=== PATIENT | male | born 1960 | race Caucasian/White ===

== ENCOUNTER 2019-06-25 10:04 | Emergency (ER) | payer BC ==
--- NOTE | 2019-06-25 10:46 | ER Document Report ---
ED Medical Screen (RME) - General Chief Complaint: Blood Pressure Problem Stated Complaint: BLOOD PRESSURE PROBLEMS Time Seen by Provider: 06/25/19 10:32 Information source: Patient Notes: Patient presents with a history of neurogenic orthostatic hypotension and diabetes. Patient states that his blood pressure has been elevated recently as high as 232/128. Patient states that he did have some headache pain in various spots on the scalp and had some double vision that has since improved at this time. Patient does report some nausea. Patient states he has to stand up for his blood pressure to go down. Patient states that he did have a leftover prescription of losartan 50 mg. Patient states that when he had his symptoms during the night he took 50 mg at midnight and then 50 mg at 2:00 this morning. Patient states that he did have his Florinef dose increased recently. I have greeted and performed a rapid initial assessment of this patient. A comprehensive ED assessment and evaluation of the patient, analysis of test results and completion of the medical decision making process will be conducted by additional ED providers. - Related Data Allergies/Adverse Reactions: No Known Allergies Allergy (Unverified 06/25/19 10:31) Past Medical History - Past Medical History Cardiac Medical History: Reports: Hx Hypertension - and hypo Physical Exam - Vital signs Vitals: Resp Pulse Ox 15 97 06/25/19 10:17 06/25/19 10:17 - Neurological Neuro grossly intact: Yes Cognition: Normal [place] Coma Scale Eye Opening: Spontaneous [place] Coma Scale Verbal: Oriented [place] Coma Scale Motor: Obeys Commands [place] Coma Scale Total: 15 Speech: Normal Course - Vital Signs Vital signs: Temp Pulse Resp BP Pulse Ox 97.6 F 67 15 197/103 H 97 06/25/19 10:30 06/25/19 10:30 06/25/19 10:17 06/25/19 10:30 06/25/19 10:17
--- NOTE | 2019-06-25 11:35 | RADIOLOGY REPORT (SQ) ---
EXAM DESCRIPTION: CHEST 2 VIEWS COMPLETED DATE/TIME: 06/25/2019 11:25 am REASON FOR STUDY: HTN COMPARISON: None. EXAM PARAMETERS: NUMBER OF VIEWS: two views TECHNIQUE: Digital Frontal and Lateral radiographic views of the chest acquired. RADIATION DOSE: NA LIMITATIONS: none FINDINGS: LUNGS AND PLEURA: No opacities, masses or pneumothorax. No pleural effusion. MEDIASTINUM AND HILAR STRUCTURES: No masses or contour abnormalities. HEART AND VASCULAR STRUCTURES: Heart normal size. No evidence for failure. BONES: No acute findings. HARDWARE: None in the chest. OTHER: No other significant finding. IMPRESSION: NO ACUTE RADIOGRAPHIC FINDING IN THE CHEST. TECHNICAL DOCUMENTATION: JOB ID: [id number]- All Rights Reserved Reading location - IP/workstation name: [email or web address]
--- NOTE | 2019-06-25 11:50 | RADIOLOGY REPORT (SQ) ---
EXAM DESCRIPTION: CT HEAD WITHOUT COMPLETED DATE/TIME: 06/25/2019 11:41 am REASON FOR STUDY: HTN, TOWNSEND, vision changes COMPARISON: None. TECHNIQUE: Axial images acquired through the brain without intravenous contrast. Images reviewed wi th bone, brain and subdural windows. Additional sagittal and coronal reconstructions were generated. Images stored on PACS. All CT scanners at this facility use dose modulation, iterative reconstruction, and/or weight based d osing when appropriate to reduce radiation dose to as low as reasonably achievable (ALARA). [facility]: Dose Right [facility]: CareDose [facility]: Dose Right [facility]: Teradose 4D [facility]: Smart [employer] RADIATION DOSE: CT Rad equipment meets quality standard of care and radiation dose reduction techniq ues were employed. CTDIvol: 53.2 mGy. DLP: 964 mGy-cm. mGy. LIMITATIONS: None. FINDINGS: VENTRICLES: Normal size and contour. CEREBRUM: No masses. No hemorrhage. No midline shift. No evidence for acute infarction. Normal gra y/white matter differentiation. No areas of low density in the white matter. CEREBELLUM: No masses. No hemorrhage. No alteration of density. No evidence for acute infarction. EXTRAAXIAL SPACES: No fluid collections. No masses. ORBITS AND GLOBE: No intra- or extraconal masses. Normal contour of globe without masses. CALVARIUM: No fracture. PARANASAL SINUSES: No fluid or mucosal thickening. SOFT TISSUES: No mass or hematoma. OTHER: No other significant finding. IMPRESSION: NORMAL BRAIN CT WITHOUT CONTRAST. EVIDENCE OF ACUTE STROKE: NO. COMMENT: Quality ID # [id number]: Final reports with documentation of one or more dose reduction techniques (e.g., Automated exposure control, adjustment of the mA and/or kV according to patient size, use of iterative reconstruction technique) TECHNICAL DOCUMENTATION: JOB ID: [id number] [employer]- All Rights Reserved Reading location - IP/workstation name: [email or web address]
[2019-06-25 12:19] LABS: APPEARANCE,URINE CLEAR; BILIRUBIN,URINE NEGATIVE (NEGATIVE); COLOR,URINE YELLOW; GLUCOSE, URINE 150 mg/dL (NEGATIVE); KETONES,URINE NEGATIVE (NEGATIVE); PROTEIN,URINE NEGATIVE (NEGATIVE); URINE SPECIFIC GRAVITY 1.014; UROBILINOGEN,URINE NEGATIVE mg/dL (<2.0)
--- NOTE | 2019-06-25 12:21 | ER Document Report ---
ED General - General Chief Complaint: Blood Pressure Problem Stated Complaint: BLOOD PRESSURE PROBLEMS Time Seen by Provider: 06/25/19 10:32 Mode of Arrival: Ambulatory Information source: Patient Notes: 59-year-old male presents to the emergency department with a history of orthostatic hypotension, he is on Florinef and the dose was recently increased. Noticing increasing blood pressure over the past few days and elevated last night. He denies headache or acute neurologic symptoms however does complain of a pressure sensation in his head when the blood pressure is extreme. He present s to the emergency department for further evaluation. - Related Data Allergies/Adverse Reactions: No Known Allergies Allergy (Unverified 06/25/19 10:31) Past Medical History - General Information source: Patient - Social History Smoking Status: Unknown if Ever Smoked Family History: Hypertension Patient has suicidal ideation: No Patient has homicidal ideation: No - Past Medical History Cardiac Medical History: Reports: Hx Hypertension - and hypo Review of Systems - Review of Systems Notes: Constitutional: Negative for fever. HENT: Negative for sore throat. Eyes: Negative for visual changes. Cardiovascular: Negative for chest pain. Respiratory: Negative for shortness of breath. Gastrointestinal: Negative for abdominal pain, vomiting or diarrhea. Genitourinary: Negative for dysuria. Musculoskeletal: Negative for back pain. Skin: Negative for rash. Neurological: Negative for headaches, weakness or numbness. 10 point ROS negative except as marked above and in HPI. Physical Exam - Vital signs Vitals: Resp Pulse Ox 15 97 06/25/19 10:17 06/25/19 10:17 - Notes Notes: Reviewed vital signs and nursing note as charted by RN. CONSTITUTIONAL: Well-appearing, well-nourished; attentive, alert and interactive with good eye contact; acting appropriately for age HEAD: Normocephalic; atraumatic; No swelling EYES: PERRL; Conjunctivae clear, no drainage; EOMI ENT: External ears without lesions; External auditory canal is patent; TMs without erythema, landmarks clear and well visualized; no rhinorrhea; Pharynx without erythema or lesions, no tonsillar hypertrophy, airway patent, mucous membranes pink and moist NECK: Supple, no cervical lymphadenopathy, no masses CARD: Regular rate and rhythm; no murmurs, no rubs, no gallops, RESP: Respiratory rate and effort are normal. There is normal chest excursion. No respiratory distress, no retractions, no stridor, no nasal flaring, no accessory muscle use. The lungs are clear to auscultation bilaterally, no wheezing, no rales, no rhonchi. ABD/GI: Normal bowel sounds; non-distended; soft, non-tender, no rebound, no guarding, no palpable organomegaly EXT: Normal ROM in all joints; non-tender to palpation; no effusions, no edema SKIN: Normal color for age and race; warm; dry; good turgor; no acute lesions noted NEURO: No facial asymmetry; Moves all extremities equally; Motor and sensory function intact Course - Re-evaluation Re-evalutation: 06/25/19 14:14 Differential diagnosis Electrolyte imbalance, adverse reactions to Florinef, intracerebral hemorrhage, ischemic/vascular Patient's blood pressure has improved and he is feeling fine. He is requesting something to take if his pressure goes back up. I have suggested that he try clonidine 0.1 mg tablets. We will discharge him with 5 tablets and 1 to be taken if his blood pressure approaches to 180/190 systolic range. He is able to monitor the blood pressure at home and his attest that his blood pressure has been as low as 60 systolic and he has been functional. He gone on the Florinef by his neurologist and will be following up in that office tomorrow. - Vital Signs Vital signs: Temp Pulse Resp BP Pulse Ox 97.9 F 67 9 L 159/77 H 99 06/25/19 14:48 06/25/19 10:30 06/25/19 14:47 06/25/19 14:48 06/25/19 14:47 - Laboratory Result Diagrams: 06/25/19 12:18 06/25/19 12:18 Laboratory results interpreted by me: 06/25/19 06/25/19 11:17 12:18 Glucose 165 H Total Protein 8.3 H Urine Glucose (UA) 150 H - Diagnostic Test Radiology reviewed: Image reviewed, Reports reviewed - Chest x-ray: No acute infiltrate or effusion noted CT of the head noncontrast study: No acute findings, no CVA, no hemorrhage. - EKG Interpretation by Pa EKG shows normal: Sinus rhythm - Rate of 64, [place], Intervals, QRS Complexes, ST- T Waves Discharge - Discharge Clinical Impression: Episode of hypertension, Orthostatic hypotension dysautonomic syndrome Condition: Good Disposition: HOME, SELF-CARE Instructions: High Blood Pressure ([facility]), Orthostatic Hypotension ([facility]) Additional Instructions: Please follow-up with your Neurologist tomorrow. Prescriptions: Clonidine HCl [Catapres] 0.1 mg PO Q12 #5 tablet Forms: Elevated Blood Pressure
[2019-06-25 12:26] LABS: ABSOLUTE BASOPHILS # (AUTO) 0.1 10^3/uL (0.0-0.2); ABSOLUTE EOSINOPHILS # (AUTO) 0.2 10^3/uL (0.0-0.6); ABSOLUTE LYMPHOCYTES (AUTO) 1.8 10^3/uL (0.5-4.7); ABSOLUTE MONOCYTES (AUTO) 0.5 10^3/uL (0.1-1.4); ABSOLUTE NEUT (AUTO) 5.2 10^3/uL (1.7-8.2); BASOPHILS % (AUTO) 0.9 % (0-2); EOSINOPHILS % (AUTO) 2.5 % (0-6); HEMATOCRIT 47.2 % (37.9-51.0); MEAN CORPUSCULAR HEMOGLOBIN 29.2 pg (27.0-33.4); MEAN CORPUSCULAR HGB CONC 33.9 g/dL (32.0-36.0); MEAN CORPUSCULAR VOLUME 86 fl (80-97); MONOCYTES % (AUTO) 6.9 % (3-13); PLATELET COUNT 194 10^3/uL (150-450); RED BLOOD COUNT 5.48 10^6/uL (4.35-5.55); SEGMENTED NEUTROPHILS % (AUTO) 66.7 % (42-78); TOTAL CELLS COUNTED % (AUTO) 100 %; WHITE BLOOD COUNT 7.8 10^3/uL (4.0-10.5)
[2019-06-25 12:47] LABS: ALBUMIN 4.8 g/dL (3.5-5.0); ALKALINE PHOSPHATASE 95 U/L (38-126); ANION GAP 11 (5-19); ASPARTATE AMINO TRANSFERASE 34 U/L (17-59); BILIRUBIN,DIRECT 0.2 mg/dL (0.0-0.4); BILIRUBIN,TOTAL 0.6 mg/dL (0.2-1.3); BLOOD UREA NITROGEN 18 mg/dL (7-20); CALCIUM 9.3 mg/dL (8.4-10.2); CARBON DIOXIDE 26 mmol/L (22-30); CHLORIDE 102 mmol/L (98-107); GLUCOSE 165 mg/dL (75-110); POTASSIUM 4.9 mmol/L (3.6-5.0); TOTAL PROTEIN 8.3 g/dL (6.3-8.2)
[2019-06-25 15:19] VITALS: BP 159/77
--- NOTE | 2019-06-25 23:23 | EKG REPORT ---
SEVERITY:- NORMAL ECG - SINUS RHYTHM : Confirmed by: Edin Vinson 25-Jun-2019 23:22:43
== END 2019-06-25 14:45 | disposition home or self-care (01) ==
LOC: ER 10:04
DX: I10 Essential (primary) hypertension (principal); I95.1 Orthostatic hypotension; G90.1 Familial dysautonomia [Riley-Day]; Z79.899 Other long term (current) drug therapy
CPT/HCPCS: 36415; 70450; 71046; 80053; 81001; 84484; 85025; 93005; 93010; 99284

== ENCOUNTER 2019-07-01 06:10 | Emergency (ER) | payer BC ==
[2019-07-01 08:01] VITALS: BP 186/98
[2019-07-01 08:04] LABS: ABSOLUTE BASOPHILS # (AUTO) 0.1 10^3/uL (0.0-0.2); ABSOLUTE EOSINOPHILS # (AUTO) 0.1 10^3/uL (0.0-0.6); ABSOLUTE LYMPHOCYTES (AUTO) 1.7 10^3/uL (0.5-4.7); ABSOLUTE MONOCYTES (AUTO) 0.6 10^3/uL (0.1-1.4); BASOPHILS % (AUTO) 0.9 % (0-2); EOSINOPHILS % (AUTO) 1.6 % (0-6); HEMATOCRIT 42.8 % (37.9-51.0); HEMOGLOBIN 14.7 g/dL (13.5-17.0); LYMPHOCYTES % (AUTO) 22.5 % (13-45); MEAN CORPUSCULAR HEMOGLOBIN 29.3 pg (27.0-33.4); MEAN CORPUSCULAR HGB CONC 34.3 g/dL (32.0-36.0); MEAN CORPUSCULAR VOLUME 86 fl (80-97); MONOCYTES % (AUTO) 8.4 % (3-13); PLATELET COUNT 184 10^3/uL (150-450); RED BLOOD COUNT 5.01 10^6/uL (4.35-5.55); RED CELL DISTRIBUTION WIDTH 13.7 % (11.5-14.0); SEGMENTED NEUTROPHILS % (AUTO) 66.6 % (42-78); TOTAL CELLS COUNTED % (AUTO) 100 %; WHITE BLOOD COUNT 7.5 10^3/uL (4.0-10.5)
[2019-07-01 08:08] LABS: APPEARANCE,URINE CLEAR; BILIRUBIN,URINE NEGATIVE (NEGATIVE); COLOR,URINE STRAW; GLUCOSE, URINE 50 mg/dL (NEGATIVE); KETONES,URINE NEGATIVE (NEGATIVE); LEUKOCYTE ESTERASE,URINE NEGATIVE (NEGATIVE); NITRITE,URINE NEGATIVE (NEGATIVE); PROTEIN,URINE NEGATIVE (NEGATIVE); URINE SPECIFIC GRAVITY 1.004; UROBILINOGEN,URINE NEGATIVE mg/dL (<2.0)
[2019-07-01 08:09] LABS: ALBUMIN 4.6 g/dL (3.5-5.0); ALKALINE PHOSPHATASE 103 U/L (38-126); ANION GAP 11 (5-19); ASPARTATE AMINO TRANSFERASE 28 U/L (17-59); BILIRUBIN,DIRECT 0.1 mg/dL (0.0-0.4); BILIRUBIN,TOTAL 0.5 mg/dL (0.2-1.3); BLOOD UREA NITROGEN 17 mg/dL (7-20); CALCIUM 9.3 mg/dL (8.4-10.2); CARBON DIOXIDE 30 mmol/L (22-30); CHLORIDE 100 mmol/L (98-107); GLUCOSE 166 mg/dL (75-110); POTASSIUM 4.1 mmol/L (3.6-5.0); TOTAL PROTEIN 7.6 g/dL (6.3-8.2)
--- NOTE | 2019-07-01 08:17 | ER Document Report ---
Entered by YENI SHEARER SCRIBE 07/01/19 0710 Acting as scribe for:CORONA LUBIN IV, MD ED Blood Pressure Problem - General Chief Complaint: Blood Pressure Problem Stated Complaint: BLOOD PRESSURE PROBLEM,NAUSEA Mode of Arrival: Ambulatory Information source: Patient Notes: Patient is a 59 year old male with with a complicated history of orthostatic hypotension dysautonomic disorder that presents to the emergency department today with complaints of elevated blood pressures. Patient has had multiple recent adjustments to his blood pressure medication which seem to be causing his symptoms. Patient states that his Florinef was increased from 2 tablets a day to 3 tablets a day and that is when his blood pressures started to get very high. Patient states when his pressures become elevated he gets a headache with associated nausea. Patient states he called his neurologist on 06/28 to tell him that he was seen here on 06/26 for elevated pressures, he was told to go back down to the 2 tablets of Florinef, but that it would take at least a week to lower in his system. Patient's neurologist also added hydralazine. Patient mentions that he has not been getting any sleep over the last week because when he lies down his pressure goes up giving him a headache which keeps him from sleeping. Pertinent PMHx: Orthostatic hypotension dysautonomic disorder (medicated with Florinef and hydralazine) PCP: Followed by neuro at [facility] Dr. Diane Alvarez TRAVEL OUTSIDE OF THE [place] IN LAST 30 DAYS: No - Related Data Allergies/Adverse Reactions: No Known Allergies Allergy (Unverified 06/25/19 10:31) Home Medications: fludrocort 0.1 mg 2 tab qdprn. hydrazaline 2 tabs q8hprn Past Medical History - General Information source: Patient - Social History Smoking Status: Former Smoker Cigarette use (# per day): No Frequency of alcohol use: Occasional Drug Abuse: None Lives with: Family Family History: Hypertension Patient has suicidal ideation: No Patient has homicidal ideation: No - Past Medical History Cardiac Medical History: Reports: Hx Hypertension - Orthostatic hypotension dysautonomic disorder Past Surgical History: Reports: Hx Orthopedic Surgery - right knee repair, Hx Tonsillectomy Review of Systems - Review of Systems Constitutional: No symptoms reported EENT: No symptoms reported Cardiovascular: See HPI, Other - hypertension Respiratory: No symptoms reported Gastrointestinal: See HPI, Nausea Genitourinary: No symptoms reported Male Genitourinary: No symptoms reported Musculoskeletal: No symptoms reported Skin: No symptoms reported Hematologic/Lymphatic: No symptoms reported Neurological/Psychological: See HPI, Headaches -: Yes All other systems reviewed and negative Physical Exam - Vital signs Vitals: Temp Pulse Resp BP Pulse Ox 97.1 F 60 16 165/87 H 97 07/01/19 06:38 07/01/19 06:38 07/01/19 06:38 07/01/19 06:38 07/01/19 06:38 - Notes Notes: Physical Exam: General: Alert, appears well. HEENT: Normocephalic. Atraumatic. PERRL. Extraocular movements intact. Oropharynx clear. Neck: Supple. Non-tender. Respiratory: No respiratory distress. Clear and equal breath sounds bilaterally. Cardiovascular: Regular rate and rhythm. Abdominal: Normal Inspection. Non-tender. No distension. Normal Bowel Sounds. Back: No gross abnormalities. Extremities: Moves all four extremities. Upper extremities: Normal inspection. Normal ROM. Lower extremities: Normal inspection. No edema. Normal ROM. Neurological: Normal cognition. AAOx4. Normal speech. Psychological: Appears anxious. Skin: Warm. Dry. Slight palor. Course - Re-evaluation Re-evalutation: 07/01/19 07:30 Call placed to [facility] to speak to Dr. Diane Alvarez, states Dr. Montalvo is production cell leader for neuro and he will return the call. 07/01/19 08:07 Dr Alvarez actually returned call as she was on consult today. Agrees that no head CT is necessary. Agrees that his hydralazine can be increased to 30mg TID a day if needed, when pressures are 190/110 or higher. - Vital Signs Vital signs: Temp Pulse Resp BP Pulse Ox 97.1 F 62 27 H 170/82 H 96 07/01/19 06:38 07/01/19 07:10 07/01/19 07:24 07/01/19 07:24 07/01/19 07:24 - Laboratory Result Diagrams: 07/01/19 06:55 07/01/19 06:55 Laboratory results interpreted by me: 07/01/19 07/01/19 06:55 07:39 Glucose 166 H Urine Glucose (UA) 50 H Discharge - Discharge Clinical Impression: Dysautonomia Condition: Good Disposition: HOME, SELF-CARE Additional Instructions: FOLLOW UP WITH DR. ALVAREZ WITHIN 4 DAYS YOU CAN INCREASE HYDRALAZINE TO 3 TABLETS 3 TIMES A DAY FOR BLOOD PRESSURE 190/110 FOR THE NEXT 3-4 DAYS. HOME CARE INSTRUCTIONS & INFORMATION: Thank you for choosing us for your medical needs. We hope you're satisfied with the care you received. After you leave, you must properly care for your problem and, at the same time, observe its progress. Any condition can change. Some illnesses can change rapidly over hours or days. If your condition worsens, return to the Emergency Department or see your physician promptly. ABOUT YOUR X-RAYS AND EKG'S: If you had an EKG or X-rays taken, they have been read by the Emergency Physician. The X-rays and EKG's will also be read by a Radiologist or Braider Operator within 24 hours. If discrepancies are noted, you will be notified by telephone. Please be certain the ED has a correct telephone number & address where you can be reached. Also, realize that some fractures or abnormalities do not show up on initial X-rays. If your symptoms continue, see your physician. ABOUT YOUR LABORATORY TEST: If you had laboratory tests, the results have been reviewed by the Emergency Physician. Some test results (for example cultures) may not be available for several days. You will be contacted if any test result shows you need additional treatment. Please be certain the ED has a correct telephone number and address where you can be reached. ABOUT YOUR MEDICATIONS: You will receive instructions on how to take your medicine on the prescription label you receive. Additional information may be provided by the Pharmacy. If you have questions afterwards, call the ED for clarification or further instructions. Some prescribed medications may cause drowsiness. Do not perform tasks such as driving a car or operating machinery without consulting your Pharmacist. If you feel you need a refill of pain medication, your condition will need re-evaluation. Please do not call for a refill of any medication. ABOUT YOUR SIGNATURE: Signature of this document acknowledges to followin. Understanding that you received emergency treatment and that you may be released before al medical problems are known or treated. Please be certain the ED has a correct phone number & address where you can be reached. 2. Acknowledgement that you will arrange for follow-up care as recommended. 3. Authorization for the Emergency Physician to provide information to your follow-up Physician in order to maximize your care. AT ANY TIME, IF YOUR SYMPTOMS CHANGE SIGNIFICANTLY OR WORSEN OR YOU DEVELOP NEW SYMPTOMS, RETURN TO THE EMERGENCY DEPARTMENT IMMEDIATELY FOR RE-EVALUATION. OUR GOAL IS TO PROVIDE EXCELLENT MEDICAL CARE! WE HOPE THAT WE HAVE MET YOUR EXPECTATIONS DURING YOUR EMERGENCY DEPARTMENT VISIT AND THAT YOU FEEL YOU HAVE RECEIVED EXCELLENT CARE! Return to the Emergency Department without delay if any worse. I personally performed the services described in the documentation, reviewed and edited the documentation which was dictated to the scribe in my presence, and it accurately records my words and actions.
--- NOTE | 2019-07-01 11:48 | EKG REPORT ---
SEVERITY:- NORMAL ECG - SINUS RHYTHM : Confirmed by: Liudmila Terrazas MD 01-Jul-2019 11:47:48
== END 2019-07-01 08:34 | disposition home or self-care (01) ==
LOC: ER 06:10
DX: G90.1 Familial dysautonomia [Riley-Day] (principal); I10 Essential (primary) hypertension; R51 Headache; R11.0 Nausea; Z79.899 Other long term (current) drug therapy; Z87.891 Personal history of nicotine dependence
CPT/HCPCS: 36415; 80053; 81001; 85025; 93005; 93010; 99283

== ENCOUNTER 2019-07-26 16:58 | Emergency (ER) | payer BC ==
--- NOTE | 2019-07-26 19:09 | ER Document Report ---
ED Medical Screen (RME) - General Chief Complaint: Blood Pressure Problem Stated Complaint: BLOOD PRESSURE CONCERNS Time Seen by Provider: 07/26/19 19:03 Primary Care Provider: LENORA MARK DDS [Primary Care Provider] - Follow up as needed Mode of Arrival: Ambulatory Information source: Patient Notes: 59-year-old male presented to ED for elevated blood pressure. He is on blood pressure medicine but takes a home remedy for his stomach that has licorice and it. He has pure autonomic failure and he thinks that he may be having a liquids toxicity which is making his blood pressure not go down with his medication. He states he goes to a neurologist at [facility] for this condition. He states that he thinks a elevated cortisol level will determine if he is having a toxicity from this supplement. Manual blood pressure 148/82 I have greeted and performed a rapid initial assessment of this patient. A comprehensive ED assessment and evaluation of the patient, analysis of test results and completion of medical decision making process will be conducted by an additional ED providers. TRAVEL OUTSIDE OF THE [place] IN LAST 30 DAYS: No - Related Data Allergies/Adverse Reactions: No Known Allergies Allergy (Unverified 06/25/19 10:31) Past Medical History - Past Medical History Cardiac Medical History: Reports: Hx Hypertension - Orthostatic hypotension dysautonomic disorder Past Surgical History: Reports: Hx Orthopedic Surgery - right knee repair, Hx Tonsillectomy Physical Exam - Vital signs Vitals: Temp Pulse Resp BP 97.9 F 61 16 204/99 H 07/26/19 17:23 07/26/19 17:23 07/26/19 17:23 07/26/19 17:23 Course - Vital Signs Vital signs: Temp Pulse Resp BP Pulse Ox 97.9 F 59 L 16 200/88 H 100 07/26/19 17:23 07/26/19 17:25 07/26/19 17:23 07/26/19 17:25 07/26/19 17:25 Doctor's Discharge - Discharge Referrals: LENORA MARK DDS [Primary Care Provider] - Follow up as needed
[2019-07-26 20:09] LABS: APPEARANCE,URINE CLEAR; BILIRUBIN,URINE NEGATIVE (NEGATIVE); COLOR,URINE YELLOW; GLUCOSE, URINE 50 mg/dL (NEGATIVE); KETONES,URINE NEGATIVE (NEGATIVE); PROTEIN,URINE NEGATIVE (NEGATIVE); URINE SPECIFIC GRAVITY 1.013; UROBILINOGEN,URINE NEGATIVE mg/dL (<2.0)
[2019-07-26 20:13] LABS: ABSOLUTE BASOPHILS # (AUTO) 0.1 10^3/uL (0.0-0.2); ABSOLUTE EOSINOPHILS # (AUTO) 0.3 10^3/uL (0.0-0.6); ABSOLUTE LYMPHOCYTES (AUTO) 1.7 10^3/uL (0.5-4.7); ABSOLUTE MONOCYTES (AUTO) 0.6 10^3/uL (0.1-1.4); ABSOLUTE NEUT (AUTO) 4.5 10^3/uL (1.7-8.2); BASOPHILS % (AUTO) 0.9 % (0-2); EOSINOPHILS % (AUTO) 4.2 % (0-6); HEMATOCRIT 42.6 % (37.9-51.0); HEMOGLOBIN 14.5 g/dL (13.5-17.0); MEAN CORPUSCULAR HEMOGLOBIN 29.3 pg (27.0-33.4); MEAN CORPUSCULAR HGB CONC 34.1 g/dL (32.0-36.0); MEAN CORPUSCULAR VOLUME 86 fl (80-97); MONOCYTES % (AUTO) 7.7 % (3-13); PLATELET COUNT 169 10^3/uL (150-450); RED BLOOD COUNT 4.96 10^6/uL (4.35-5.55); RED CELL DISTRIBUTION WIDTH 13.7 % (11.5-14.0); SEGMENTED NEUTROPHILS % (AUTO) 63.2 % (42-78); TOTAL CELLS COUNTED % (AUTO) 100 %; WHITE BLOOD COUNT 7.1 10^3/uL (4.0-10.5)
[2019-07-26 20:36] LABS: ALBUMIN 4.4 g/dL (3.5-5.0); ALKALINE PHOSPHATASE 100 U/L (38-126); ANION GAP 12 (5-19); ASPARTATE AMINO TRANSFERASE 36 U/L (17-59); BILIRUBIN,DIRECT 0.1 mg/dL (0.0-0.4); BILIRUBIN,TOTAL 0.5 mg/dL (0.2-1.3); BLOOD UREA NITROGEN 16 mg/dL (7-20); CALCIUM 9.3 mg/dL (8.4-10.2); CARBON DIOXIDE 27 mmol/L (22-30); CHLORIDE 102 mmol/L (98-107); GLUCOSE 114 mg/dL (75-110); POTASSIUM 4.6 mmol/L (3.6-5.0); TOTAL PROTEIN 7.4 g/dL (6.3-8.2)
--- NOTE | 2019-07-26 20:36 | RADIOLOGY REPORT (SQ) ---
EXAM DESCRIPTION: CLINICAL HISTORY: 59 years Male, chest pressure COMPARISON: 06/25/2019 FINDINGS: Cardiomediastinal silhouette is not enlarged. No suspicious lung pleural bone abnormalities. IMPRESSION: Negative chest x-ray.
--- NOTE | 2019-07-26 20:42 | EKG REPORT ---
SEVERITY:- BORDERLINE ECG - SINUS RHYTHM EARLY TRANSITION, ETIOLOGY UNDETERMINED, MAY BE LEAD PLACEMENT : Confirmed by: Cruzito Lundberg MD 26-Jul-2019 20:41:52
[2019-07-26 20:47] LABS: NT PRO BNP 153 pg/mL (<125); TROPONIN I < 0.012 ng/mL
--- NOTE | 2019-07-26 22:41 | ER Document Report ---
ED Blood Pressure Problem - General Chief Complaint: High Blood Pressure Stated Complaint: BLOOD PRESSURE CONCERNS Time Seen by Provider: 07/26/19 19:03 Primary Care Provider: LENORA MARK DDS [ACTIVE STAFF] - Follow up as needed Mode of Arrival: Ambulatory Notes: Patient is a 59-year-old male who presents to the emergency department with concerns for high blood pressure. Patient states at home his blood pressure had been high. Patient has history of Orthostatic hypotension dysautonomic disorder. Patient states that he had some stomach aches and he had been taking a supplement that had licorice in the past few days. His last dose was yesterday. Patient currently takes hydralazine and fludrocortisone. He is followed by neurology at [facility]. Patient states that his muscles in his neck were little bit weak this week. Patient states that his blood pressure is normally low. TRAVEL OUTSIDE OF THE [place] IN LAST 30 DAYS: No - Related Data Allergies/Adverse Reactions: No Known Allergies Allergy (Unverified 06/25/19 10:31) Past Medical History - General Information source: Patient - Social History Smoking Status: Never Smoker Family History: Hypertension Patient has suicidal ideation: No Patient has homicidal ideation: No - Past Medical History Cardiac Medical History: Reports: Hx Hypertension - Orthostatic hypotension dysautonomic disorder Past Surgical History: Reports: Hx Orthopedic Surgery - right knee repair, Hx Tonsillectomy Review of Systems - Review of Systems Notes: REVIEW OF SYSTEMS: CONSTITUTIONAL : Denies recent illness. Denies recent unintentional weight loss. Denies fever, chills, or sweats. EENT: Denies eye, ear, throat, or mouth pain, discharge, or symptoms. Denies nasal or sinus congestion. CARDIOVASCULAR: Denies chest pain. See HPI. RESPIRATORY: Denies shortness of breath, cough, congestion, difficulty breathing, or wheezing. GASTROINTESTINAL: Denies nausea, vomiting, and diarrhea. Denies abdominal pain. Denies constipation. GENITOURINARY: Denies difficulty urinating, burning, blood in urine, urgency or frequency. MUSCULOSKELETAL: Denies neck and back pain. Denies joint pain or swelling. SKIN: Denies rash, itchiness, or lesions HEMATOLOGIC : Denies easy bruising or bleeding. LYMPHATIC: Denies swollen, painful, enlarged glands. NEUROLOGICAL: See HPI. PSYCHIATRIC: Denies stress, anxiety, alteration in sleep patterns, or depression. All other systems reviewed and negative. Physical Exam - Vital signs Vitals: Temp Pulse Resp BP 97.9 F 61 16 204/99 H 07/26/19 17:23 07/26/19 17:23 07/26/19 17:23 07/26/19 17:23 - Notes Notes: PHYSICAL EXAMINATION: GENERAL: Appears well, healthy, well-nourished, no acute distress. HEAD: Normocephalic, atraumatic. EYES: PERRL, conjunctiva normal, all extraocular movements intact, sclera nonicteric ENT: Moist mucous membranes. NECK: Supple, no noticeable swelling, redness, rash. Normal range of motion. LUNGS: Equal breath sounds bilaterally and clear to auscultation. No wheezes rales or rhonchi. CARDIOVASCULAR: S1-S2, regular rate, regular rhythm. Radial pulses 2+, normal. ABDOMEN: Normoactive bowel sounds. Soft, nontender, no guarding, no rebound tenderness, and no masses palpated. EXTREMITIES: Normal strength and range of motion, no pitting or edema. No cyanosis. NEUROLOGICAL: Moves all extremities upon command. Strength 5/5 in all extremities. PSYCH: Normal mood, normal affect. SKIN: Warm, dry. No rash, lesions, ulcerations noted. Normal skin turgor. Course - Re-evaluation Re-evalutation: 07/27/19 00:[address] Devon Mir, neurologist at [facility]. He is recommending to stop the supplement with licorice in it. He is also recommending to try to avoid the hydralazine at all. Discussed this with the patient. He is in agreement with this plan. He will follow-up with his neurologist in regards to this visit. Patient states that he will not take the new supplement anymore.Patient's blood pressure is now 187/78 which is stable. Follow-up precautions were given. Verbal discharge instructions were given to the patient. They verbalized un derstanding. They are stable for discharge. - Vital Signs Vital signs: Temp Pulse Resp BP Pulse Ox 97.9 F 55 L 13 147/78 H 98 07/27/19 00:50 07/27/19 00:50 07/27/19 00:50 07/27/19 00:50 07/27/19 00:50 - Laboratory Result Diagrams: 07/26/19 19:35 07/26/19 19:35 Laboratory results interpreted by me: 07/26/19 07/26/19 07/26/19 19:35 19:35 19:40 Glucose 114 H NT-Pro-B Natriuret Pep 153 H Urine Glucose (UA) 50 H Discharge - Discharge Clinical Impression: High blood pressure Qualifiers: Hypertension type: unspecified Qualified Code(s): I10 - Essential (primary) hypertension Condition: Stable Disposition: HOME, SELF-CARE Additional Instructions: You were seen today in the emergency department for high blood pressure. Your blood pressure came down here in the emergency department. I spoke with Dr. Mir, the neurologist at [facility] and he is recommending that you not take the supplement with licorice in it anymore, as this may interact with your medications. He also recommends you only take the hydralazine if you absolutely need it. He is recommended you call the nurse hotline if you need any help. If you pass out, lose function of your arms or legs, have numbness or tingling, or have worsening symptoms, please return to the emergency department. Referrals: LENORA MARK DDS [ACTIVE STAFF] - Follow up as needed
[2019-07-27 00:52] VITALS: BP 147/78
== END 2019-07-27 00:50 | disposition home or self-care (01) ==
LOC: ER 16:58
DX: I10 Essential (primary) hypertension (principal); R10.84 Generalized abdominal pain
CPT/HCPCS: 36415; 71046; 80053; 81001; 83880; 84484; 85025; 93005; 93010; 99284